=== PATIENT | male | born 1960 | race Caucasian/White ===

== ENCOUNTER → 2022-07-27 | Outpatient (CLI) | payer OTHER | END | disposition home or self-care (01) | LOC: LABPAT 15:11 | PROVIDERS: ATTEND Orthopaedic Surgery | DX: Z01.812 Encounter for preprocedural laboratory examination (principal); M16.12 Unilateral primary osteoarthritis, left hip; Z22.322 Carrier or suspected carrier of Methicillin resistant Staphylococcus aureus | CPT/HCPCS: 87070 ==

== ENCOUNTER → 2022-07-28 | Outpatient (CLI) | payer OTHER | END | disposition home or self-care (01) | LOC: LABPAT 11:47 | PROVIDERS: ATTEND Orthopaedic Surgery | DX: Z53.9 Procedure and treatment not carried out, unspecified reason (principal) ==

== ENCOUNTER 2022-07-31 08:00 | Observation (INO) | payer OTHER ==
--- NOTE | 2022-07-29 11:40 | P.HPOR ---
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 He notes groin and thigh pain worse with weightbearing activities. He is having a difficult time doing daily activities. He is been limping. He tried medications without much relief. He notes it has progressed. Review of Systems Negative except as in HPI Past Medical History Past Medical History: GERD/Reflux, Osteoarthritis (OA), Pneumonia, Prostate Disorder Additional Past Medical History / Comment(s): RAYNAUDS, no recent pneumonia History of Any Multi-Drug Resistant Organisms: None Reported Past Surgical History: No Surgical Hx Reported Additional Past Surgical History / Comment(s): colonoscopy Past Anesthesia/Blood Transfusion Reactions: No Reported Reaction Additional Past Anesthesia/Blood Transfusion Reaction / Comment(s): HAS NEVER HAD SURGERY EVEN IV SEDATION. Smoking Status: Never smoker Past Alcohol Use History: Daily Medications and Allergies Home Medications Medication Instructions Recorded Confirmed Type ALPRAZolam [Xanax] 0.5 mg PO BID PRN 07/27/22 07/27/22 History Sertraline [Zoloft] 100 mg PO DAILY 07/27/22 07/27/22 History Tamsulosin [Flomax] 0.4 mg PO DAILY 07/27/22 07/27/22 History tadalafiL [Cialis] 20 mg PO DIRECTED PRN 07/27/22 07/27/22 History Allergies Allergy/AdvReac Type Severity Reaction Status Date / Time meclizine HCl [From Antivert] Allergy Rash/Hives Verified 07/27/22 13:16 Physical Examination - Hip left Gait: antalgic Tenderness with palpation: anterior Pain with motion: internal rotation and hip flexion ROM: flexion: 90 degrees ROM: internal rotation: 0 degrees (Pain) ROM: external rotation: 60 degrees Crepitus with motion: Yes Strength: extension: 5/5 Strength: flexion: 5/5 Strength: abduction: 5/5 Tests: impingement tests: positive Results The patient is a well-developed well-nourished male approximately 5 foot 9, 160 pounds of mesomorphic habitus. HEENT exam is nonfocal, neck is supple. He has limited painful range of motion of the left hip. Clinically he has 1 cm shortening of the left lower extremity compared to the right. His distal n eurovascular status appears intact left lower extremity. - Diagnostic results Hip x-ray: image reviewed (2 views of the left hip obtained in the office show severe osteoarthrosis with joint space narrowing and subchondral sclerosis.) Assessment and Plan Assessment: Left hip severe osteoarthrosis Plan: I talked to the patient regarding his condition along with treatment options. At this point he's quite limited because of pain related to his osteoarthrosis despite conservative measures. After thorough discussion he opted to proceed with surgery. We'll plan to proceed with left total hip arthroplasty utilizing an anterior approach. Risks and benefits were discussed at length in layman's terms. We will institute DVT prophylaxis postoperatively. He underwent preoperative medical clearance.
[~2022-07-31 08:00] MED LIST: ACETAMINOPHEN TAB 500 MG TAB PO PRN; DEXAMETHASONE SOD PHOSPHATE 4 MG/ML 1 ML VIAL IV ONE; LIDOCAINE 1% (10MG/ML) FOR IV START INTRADERMA PRN; MELOXICAM 7.5 MG TAB PO PRN; MIDAZOLAM 2 MG/2 ML VIAL IV PRN; ONDANSETRON 4 MG/2 ML VIAL IVP ONE; TRANEXAMIC ACID IN NACL,ISO-OS 1,000 MG in SALINE 1 100ML.BAG IVPB PRN
[2022-07-31] MEDS ORDERED: LACTATED RINGERS 1,000 ML IV ONE ×2 (08:45→10:39)
[2022-07-31] MEDS ORDERED: MIDAZOLAM 2 MG/2 ML VIAL IVP ONE (09:11)
[2022-07-31] MEDS ORDERED: GLYCOPYRROLATE 0.2 MG/ML 2 ML VIAL ONE (09:35)
[2022-07-31] MEDS ORDERED: ROPIVACAINE 5 MG/ML 30 ML VIAL ONE (09:35)
[2022-07-31] MEDS ORDERED: MIDAZOLAM 2 MG/2 ML VIAL ONE (09:35)
[2022-07-31] MEDS ORDERED: fentaNYL (PF) 50 MCG/ML 2 ML AMP ONE (09:35)
[2022-07-31] MEDS ORDERED: TRANEXAMIC ACID IN NACL,ISO-OS 1,000 MG/100 ML BAG ONE (09:35)
[2022-07-31] MEDS ORDERED: DEXAMETHASONE SOD PHOSPHATE 4 MG/ML 1 ML VIAL ONE (09:35)
[2022-07-31] MEDS ORDERED: PROPOFOL 10 MG/ML 20 ML VIAL IV ONE (09:35)
[2022-07-31] MEDS ORDERED: ceFAZolin 1,000 MG in SODIUM CHLORIDE 0.9% 1,000 ML IRRIGATION ONE (10:19)
[2022-07-31] MEDS ORDERED: MAGNESIUM HYDROXIDE 2,400 MG/10 ML CUP PO PRN (11:40)
[2022-07-31] MEDS ORDERED: NALOXONE 0.4 MG/ML 1 ML VIAL IV PRN (11:40)
[2022-07-31] MEDS ORDERED: HYDROcodone/APAP 5-325MG 1 EACH TAB PO PRN (11:40)
[2022-07-31] MEDS ORDERED: HYDROmorphone 1 MG/ML 1 ML SYRINGE IVP PRN (11:40)
[2022-07-31] MEDS ORDERED: HYDROmorphone 0.5 MG/0.5 ML SYRINGE IVP PRN (11:40)
--- NOTE | 2022-07-31 12:05 | FL ---
Intraoperative/procedural fluoroscopic services were provided. Total fluoroscopy time is 26 seconds w ith a total of 4 submitted images to PACS. Please see the operative/procedural note for further detai ls. DAP: 0.8499 Gycm2
--- NOTE | 2022-07-31 12:07 | P.OP ---
Date of Procedure: 07/31/22 Preoperative Diagnosis: Left hip severe osteoarthrosis Postoperative Diagnosis: Same Procedure(s) Performed: Left total hip arthroplastypress-fitanterior approach Implants: Depuy Corail size 14 collared 125 high offset press-fit femoral stem, 36+1.5 cobalt chrome femoral head, 60 mm Mora acetabular shell with neutral polyethylene liner. I utilized a 6.5 x 30 mm cancellous screw. Anesthesia: regional, spinal Surgeon: Rigoberto Irwin Coordinator [employer]: Arvind Dukes Estimated Blood Loss (ml): 200 Pathology: none sent Condition: stable Disposition: PACU Indications for Procedure: The patient is a 61-year-old male who presents with progressive left hip pain secondary to osteoarthrosis despite conservative measures. A discussion of the risks and benefits of operative intervention versus continued conservative measures was made with patient. He opted to proceed with surgery. Operative risks to include infection, neurovascular injury, development of blood clots, leg length discrepancy, fracture, possible component loosening/failure and need for subsequent procedures was discussed. Informed consent was obtained. Operative Findings: As below Description of Procedure: The patient was brought to the operating room, and after induction of spinal anesthesia was placed supine on the Daija table. Positioning was checked with fluoroscopy. The left hip was then prepped and draped in a normal fashion. A 12 cm incision was then made starting 2 fingerbreadths distal and 3 finger breaths posterior to the ASIS in line with the proximal femur. The skin was incised sharply. Subcutaneous tissues were divided sharply. Electrocautery was used for hemostasis. The fascia was split in line with skin incision. The interval between the sartorius and tensor fascia dora was then bluntly developed. The posterior fascia was opened with electrocautery. The lateral circumflex vessels were identified and cauterized prior to sectioning. A retractor was placed along the superior femoral neck as well as the anterior acetabular rim. A wide capsulotomy was performed. The neck cut was then made at a 45 angle to the shaft approximately 1 1/2 cm above the level of the lesser trochanter. The head was extracted. Attention was then paid towards preparing the acetabular. Anterior and posterior retractors were placed. The remaining capsular labral tissue sharply debrided clearly defining the acetabular margins. I began reaming with a 51 mm reamer taking care to initially medialize then reaming at 45 of abduction and 20 of anteversion. Sequential reaming is performed up to 59 mm. A trial stay mm acetabular shell was inserted in the same orientation and was fully seated. There was good rim fit and stability. Positioning was checked with fluoroscopy. The final [] mm acetabular shell was inserted again at 45 of abduction and 20 of anteversion. This was fully seated. There was good rim fit and stability. I did place a 6.5 mm x 30 mm cancellus screw posterior superior with good purchase. Again fluoroscopy was used to check the adequacy of placement. A neutral polyethylene liner was gently impacted. Care was taken to avoid any s oft tissue interposition. Pulsatile lavage was utilized. Attention was then paid towards preparing the proximal femur. The central region was cleared of soft tissue. A canal finder was used to find the femoral canal. Sequential broaching was performed up to size 14 taking care to lateralize proximally. A calcar mill was used to fashion the medial calcar. There was good rotational stability. A 125 high offset neck along with a 36 mm +1.5 head was placed. The hip was gently reduced. Fluoroscopy was used to check the adequacy of positioning along with leg lengths. I felt both were good. The hip was gently dislocated. The trial components were removed. The final size 14 collared 125 high offset press-fit femoral stem was inserted parallel to the posterior cortex. This was fully seated and there was good rotational stability. A 36 mm and 5 head was placed. This was gently impacted. The hip was then gently reduced. Final fluoroscopic view showed adequate placement implant along with nondenominational of leg length. Stability was checked with 80 of external rotation and 60 of extension of the right hip. The wound was irrigated with sterile lavage. The fascia was closed with running 0 Vicryl suture. There was minimal drainage therefore a deep drain was not placed. The second dose of IV TXA was given. The subcutaneous tissues were reapproximated interrupted 2-0 Vicryl sutures. The skin was reapproximated with 3-0 subcuticular strata fix suture. Skin tape and adhesive was applied. A sterile dressing was applied. The patient was then awoken from sedation and transferred to recovery room in good condition. Blood loss was estimated at 200 mL. No complications were incurred. Sponge and needle counts were correct at the end of the case. Arvind KAT assisted during the major components is case to include exposure, bone resection, implantation, and closure.
--- NOTE | 2022-07-31 13:30 | P.ANPRN ---
Procedure Note - Anesthesia - Nerve Block Performed Left Maurice Single Time Out Performed: Yes Date of Procedure: 07/31/22 Procedure Start Time: 09:10 Procedure Stop Time: 09:15 Location of Patient: PreOp Indication: Acute Post-Operative Pain, Requested by Surgeon Sedation Type: Sedate with meaningful contact maintained Preparation: Sterile Prep Position: Supine Needle Types: Pajunk Needle Gauge: 21 Ultrasound used to visualize needle placement: Yes Ultrasound used to observe medication spread: Yes Blood Aspirated: No Pain Paresthesia on Injection Noted: No Resistance on Injection: Normal Image Stored and Saved: Yes Events: Uneventful and Well Tolerated (Ropivacaine 0.5% 20 mL dexamethasone 4 mg)
[2022-07-31] MEDS: HYDROmorphone 0.5 MG/0.5 ML SYRINGE IVP PRN ×3 (14:10→14:38)
[2022-07-31] MEDS: LACTATED RINGERS 1,000 ML IV SCH (14:47)
[2022-07-31] MEDS: HYDROcodone/APAP 7.5-325MG 1 EACH TAB PO PRN ×2 (15:41→20:39)
[2022-07-31] MEDS ORDERED: TADALAFIL 20 MG PO PRN (17:05)
[2022-07-31] MEDS ORDERED: ALPRAZolam 0.5 MG TAB PO PRN (17:05)
[2022-07-31] MEDS: TAMSULOSIN 0.4 MG CAP.ER.24H PO SCH (17:12)
[2022-07-31] MEDS ORDERED: SENNOSIDES-DOCUSATE SODIUM 1 EACH TAB PO SCH (21:00)
[2022-08-01] MEDS: LACTATED RINGERS 1,000 ML IV SCH (03:03)
[2022-08-01] MEDS: HYDROcodone/APAP 7.5-325MG 1 EACH TAB PO PRN ×2 (06:11→12:12)
[2022-08-01 07:42] VITALS: RESP 16
[2022-08-01] MEDS: TAMSULOSIN 0.4 MG CAP.ER.24H PO SCH (08:51)
[2022-08-01] MEDS ORDERED: SERTRALINE 100 MG TAB PO SCH (09:00)
[2022-08-01] MEDS ORDERED: RIVAROXABAN 10 MG TAB PO SCH (09:00)
[2022-08-01] MEDS: ONDANSETRON 4 MG/2 ML VIAL IVP PRN ×2 (09:12→15:21)
--- NOTE | 2022-08-01 11:34 | P.DS ---
Providers Date of admission: 07/31/2022 Expected date of discharge: 08/01/22 Attending physician: Rigoberto Irwin Consults: 07/31/22 11:40 Consult Physician Routine Consulting Provider: Maximiliano Tariq Consult Reason/Comments: medical management s/p left total hip arthroplasty (anterior) Do you want consulting provider notified?: Yes Primary care physician: Maximiliano Tariq Hospital Course: Date of admission: 07/31/2022 Date of discharge: 08/01/2022 Admission diagnosis: Left hip osteoarthritis Discharge diagnosis: Same Attending physician: Dr. Irwin Surgical procedures: Left total hip arthroplasty Brief history: Patient is a 61-year-old male with a history of progressive primary left hip osteoarthritis. At this point patient has failed conservative treatment measures and has opted to proceed with a elective left total hip arthroplasty. Hospital course: Details of patient's surgery can be found in operative report. Patient tolerated the procedure well and was subsequently transported to orthopedic floor. Patient's orthopeidc and medical care was provided daily. Patient had daily laboratory tests performed for evaluation of overall blood counts. Patient had daily physical therapy to include strengthening range of motion as well as education with walker ambulation. Patient was treated with Xarelto for their postoperative DVT prophylaxis during their inpatient stay. Patient was noted to have a relatively uneventful postoperative course. Patient reported satisfactory pain control with oral pain medications by postoperative day 1. Patient showed satisfactory progress with physical therapy. Patient moved steadily through the program and had no difficulty meeting the goals by postoperative day 1. Given patient's otherwise satisfactory course and having met physical therapy goals, plan is to discharge patient home with health services on postoperative day 1. Discharge condition/disposition: Patient will be discharged home with health services in stable condition. Discharge medications: Instructions are given on resumption of patient's normal daily medications per primary care recommendation, in addition patient will be prescribed [place]; senna; Zofran; eliquis. Discharge instructions: 1. Wound care and infection precautions, keep incision dry and covered while showering, no lotions, creams, moisturizers. No soaking, tubs, pools, hottubs. Do not scrub over the incision. 2. Weight-bear as tolerated with walker / cane until follow-up. 3. Ice and elevate when necessary. Do not exceed 20 minutes per hour with ice pack. 4. Utilize compression sleeve until seen at first follow up appointment. 5. Visiting nursing care. 6. Home physical therapy. 7. Pain meds and anticoagulants per prescription. 8. Pain medication has potential to cause constipation. Increase oral fluid and fiber intake. Contact primary care provider if you have not had a bowel movement within 48 hours after discharge 9. No anti-inflammatory medication until discussed at first post operative visit, this including Motrin, Aleve, Mobic, Diclofenac. 10. Follow up in office at 2 weeks postop with Dylon Patel PA-C / Arvind Dukes PA-C 11. Follow up with your primary care doctor 7-10 days after discharge. 12. Contact [facility] with any questions, . Keep incision clean, dry, intact. While showering, cover fusion tape was Saran wrap. Keep tape on until follow-up appointment in office in 2 weeks. Assessment: Left hip osteoarthritis Procedures: Left total hip arthroplasty Patient Condition at Discharge: Good Plan - Discharge Summary Discharge Rx Participant: Yes New Discharge Prescriptions: New HYDROcodone/APAP 7.5-325MG [[place] 7.5] 1 - 2 each PO Q6HR PRN #36 tab PRN Reason: Pain Sennosides/Docusate Sodium [Senna Plus 8.6-50 mg Softgel] 1 each PO DAILY #20 capsule Ondansetron [Zofran] 4 mg PO Q8HR PRN #12 tab PRN Reason: Nausea Apixaban [Eliquis] 2.5 mg PO BID #60 tab No Action Sertraline [Zoloft] 100 mg PO DAILY tadalafiL [Cialis] 20 mg PO DIRECTED PRN PRN Reason: erectile dysfunction Tamsulosin [Flomax] 0.4 mg PO DAILY ALPRAZolam [Xanax] 0.5 mg PO BID PRN PRN Reason: Anxiety Discharge Medication List ALPRAZolam [Xanax] 0.5 mg PO BID PRN 07/27/22 [History] Sertraline [Zoloft] 100 mg PO DAILY 07/27/22 [History] Tamsulosin [Flomax] 0.4 mg PO DAILY 07/27/22 [History] tadalafiL [Cialis] 20 mg PO DIRECTED PRN 07/27/22 [History] Apixaban [Eliquis] 2.5 mg PO BID #60 tab 08/01/22 [Rx] HYDROcodone/APAP 7.5-325MG [[place] 7.5] 1 - 2 each PO Q6HR PRN #36 tab 08/01/22 [Rx] Ondansetron [Zofran] 4 mg PO Q8HR PRN #12 tab 08/01/22 [Rx] Sennosides/Docusate Sodium [Senna Plus 8.6-50 mg Softgel] 1 each PO DAILY #20 capsule 08/01/22 [Rx] Follow up Appointment(s)/Referral(s): Arvind Dukes, SARABJIT [PHYSICIAN COMPUTER GRAPHIC ARTIST] - 08/17/22 2:50 pm [facility] [NON-STAFF] - As Needed Patient Instructions/Handouts: Anterior Hip Replacement (DC) Activity/Diet/Wound Care/Special Instructions: Orthopedic Discharge Instructions: 1. Wound care and infection precautions, keep incision dry and covered while showering, no lotions, creams, moisturizers. No soaking, pools, hot tubs. Do not scrub over incision. 2. Weight-bear as tolerated with walker / cane until follow-up. 3. Ice and elevate when necessary. Do not exceed 20 minutes per hour with ice pack. 4. Utilize compression sleeve until seen at first follow up appointment. 5. Pain meds and anticoagulants per prescription. 6. Pain medication has potential to cause constipation. Increase oral fluid and fiber intake. Contact primary care provider if you have not had a bowel movement within 48 hours after discharge. 7. No anti-inflammatory medication until discussed at first post operative visit, this including Motrin, Aleve, Mobic, Diclofenac. 8. Follow up in office at 2 weeks postop with Dylon Patel PA-C / Arvind Dukes PA-C 9. Follow up with your primary care doctor 7-10 days after discharge. 10. Contact [facility] with any questions, . Keep incision dry, intact. While showering, cover fusion tape with Saran wrap. Follow up in office in 2 weeks. Discharge Disposition: HOME WITH HOME HEALTH SERVICES
--- NOTE | 2022-08-01 12:45 | P.PN ---
Subjective Progress Note Date: 08/01/22 Principal diagnosis: Left hip osteoarthritis Patient was seen at bedside this morning sitting up in chair with legs elevated. Patient says he just been working with physical therapy and walk down the del real and up-and-down steps. Patient says he has been nausea since surgery yesterday. Patient says that the Zofran did help with the nausea. Patient says he does have a walker for home. Patient says he had urinated several times since surgery yesterday. Patient says he is having some hip pain at this time however, it is controlled with medication. Patient says he is sleeping poorly going home later today. Patient denies any significant chest pain, fever, shortness breath, nausea, vomiting, change in vision, loss of bowel/bladder control. Objective - Vital Signs Vital signs: Vital Signs Temp 98.4 F 08/01/22 07:21 Pulse 63 08/01/22 07:21 Resp 16 08/01/22 07:21 BP 132/70 08/01/22 07:21 Pulse Ox 99 08/01/22 07:21 FiO2 Intake & Output 07/31/22 08/01/22 08/01/22 18:59 06:59 18:59 Intake Total 1851 Output Total 525 600 Balance 1326 -600 Weight 70.9 kg Intake: IV 1851 Output: Urine 325 600 Estimated Blood Loss 200 Other: Voiding Method Urinal # Voids 0 2 - Exam Left hip: Incision is clean, dry, and intact. The exofin fusion tape is in good condition. There is minimal soft tissue swelling and ecchymosis surrounding the medial and lateral aspects of the incision. Calf is soft, no tenderness with palpation. Plantar flexion, dorsiflexion, EHL, FHL are intact. Sensory exam to light touch throughout the extremity is intact, dorsal pedis pulses 2+. Assessment and Plan Assessment: 1. Left hip osteoarthritis - Postoperative day 1 status post left total hip arthroplasty Plan: 1. Left hip osteoarthritis - left total hip arthroplasty performed yesterday, 07/31/2022. Patient stable at bedside this morning. Patient does have a walker for home. Discharge home today with health services. 2. Appreciate medical management 3. Pain management - [place] 4. DVT prophylaxis - Xarelto in hospital. Going home with eliquis 5. GI prophylaxis - senna 6. PT/OT - weightbearing as tolerated with walker as needed 7. Encourage incentive spirometer use 8. Discharge planning - home today with health services Time with Patient: Less than 30
[2022-08-01 14:18] LABS: Basophils # (A) 0.03 X 10*3/uL (0.00-0.10); Basophils % (A) 0.3 %; Eosinophils # (A) 0.01 X 10*3/uL (0.04-0.35); Eosinophils % (A) 0.1 %; HCT 41.2 % (39.6-50.0); Immature Grans, Automated 0.3 %; Lymphocytes # (A) 1.34 X 10*3/uL (0.90-5.00); Lymphocytes % (A) 13.1 %; MCH 33.1 pg (27.0-32.0); MCV 97.4 fL (80.0-97.0); Mean Platelet Volume 9.9 fL (9.5-12.2); Monocytes # (A) 0.82 X 10*3/uL (0.20-1.00); NRBC Per 100 WBC 0 /100 WBCS (0.0-0.0); Neutrophils # (A) 8.01 X 10*3/uL (1.80-7.70); Neutrophils % (A) 78.2 %; Platelet Count 203 X 10*3/uL (140-440); RBC 4.23 X 10*6/uL (4.40-5.60); RDW 12.9 % (11.5-14.5); WBC 10.24 X 10*3/uL (4.50-10.00)
[2022-08-01 15:15] VITALS: BP 118/64; PULSE 91; TEMP 98.2
--- NOTE | 2022-08-01 23:07 | P.CONS ---
History of Present Illness - Reason for Consult Consult date: 08/01/22 - History of Present Illness Patient is a pleasant 61-year-old white male who was admitted to the hospital status post left hip anterior arthroplasty. He is doing very well his pain is controlled is afebrile he has no cough or congestion no shortness of breath patient has not ambulated yet today his pain was an 8 out of 10 last night into 6 out of 10 today . Review of Systems GENERAL: Patient denies fever. Denies chills. EYES: Denies blurred vision. Denies vision changes. Denies eye pain. EARS, NOSE, MOUTH, & THROAT: Denies headache. Denies sore throat. Denies ear pain. RESPIRATORY: Denies cough. Denies shortness of breath. Denies sputum production. Denies hemoptysis. CARDIOVASCULAR: Denies chest pain or pressure. Denies palpitations. Denies arrhythmias. GASTROINTESTINAL: Denies abdominal pain. Denies diarrhea. Denies constipation. Denies nausea. Denies vomiting. Denies heartburn. Denies blood in the stool. GENITOURINARY: Denies urinary frequency. Denies burning. Denies dysuria. Denies cloudy urine. Denies blood in the urine. MUSCULOSKELETAL: Denies myalgias. Denies joint swelling. Denies decreased range of motion beyond patients baseline. INTEGUMENTARY: Denies pruitis. Denies rash. PSYCHIATRIC: Denies suicidal or homicial ideations. ENDOCRINE: Denies weight change. Denies polydipsia. Denies polyuria. HEMATOLOGIC: Denies bleeding disorders. Past Medical History Past Medical History: GERD/Reflux, Osteoarthritis (OA), Pneumonia, Prostate Disorder Additional Past Medical History / Comment(s): RAYNAUDS, no recent pneumonia History of Any Multi-Drug Resistant Organisms: None Reported Past Surgical History: No Surgical Hx Reported Additional Past Surgical History / Comment(s): colonoscopy Past Anesthesia/Blood Transfusion Reactions: No Reported Reaction Additional Past Anesthesia/Blood Transfusion Reaction / Comm: HAS NEVER HAD SURGERY EVEN IV SEDATION. Smoking Status: Never smoker Medications and Allergies Home Medications Medication Instructions Recorded Confirmed Type ALPRAZolam [Xanax] 0.5 mg PO BID PRN 07/27/22 07/31/22 History Sertraline [Zoloft] 100 mg PO DAILY 07/27/22 07/31/22 History Tamsulosin [Flomax] 0.4 mg PO DAILY 07/27/22 07/31/22 History tadalafiL [Cialis] 20 mg PO DIRECTED PRN 07/27/22 07/31/22 History Apixaban [Eliquis] 2.5 mg PO BID #60 tab 08/01/22 Rx HYDROcodone/APAP 7.5-325MG [[place] 1 - 2 each PO Q6HR PRN #36 tab 08/01/22 Rx 7.5] Ondansetron [Zofran] 4 mg PO Q8HR PRN #12 tab 08/01/22 Rx Sennosides/Docusate Sodium [Senna 1 each PO DAILY #20 capsule 08/01/22 Rx Plus 8.6-50 mg Softgel] Allergies Allergy/AdvReac Type Severity Reaction Status Date / Time meclizine HCl [From Antivert] Allergy Rash/Hives Verified 07/31/22 08:23 Physical Exam Osteopathic Statement: *. No significant issues noted on an osteopathic structural exam other than those noted in the History and Physical/Consult. Vitals: Vital Signs Temp Pulse Resp BP Pulse Ox 08/01/22 14:40 98.2 F 91 16 118/64 95 08/01/22 07:21 98.4 F 63 16 132/70 99 08/01/22 01:20 98.1 F 73 19 125/65 96 Intake and Output 08/01/22 08/01/22 08/01/22 06:59 14:59 22:59 Output Total 600 Balance -600 Output: Urine 600 Other: # Voids 2 GENERAL: This is a -61year-old in no apparent distress at the time of examination. Pleasant and cooperative. HEENT: Head is atraumatic, normocephalic. Pupils are equal, round, and reactive to light. Sclerae anicteric. Conjunctivae are clear. Mucus membranes of the mouth are moist. Neck is supple. RESPIRATORY: Clear to auscultation. No wheezes, rales, or rhonchi. No use of accessory muscles. CARDIOVASCULAR: Regular rate and rhythm. S1 and S2 noted. No systolic or diastolic murmur auscultated. No JVD noted. No S3 or S4 noted. GASTROINTESTINAL: No distention noted. Abdomen soft and round. Normal active bowel sounds auscultated x 4 quadrants. No pain or tenderness noted upon palpation. INTEGUMENTARY: No cyanosis. No jaundice. No rashes noted. No cellulitis noted. EXTREMITIES: 2+ peripheral pulses. No evidence of peripheral edema. No calf tenderness noted. NEUROLOGIC: Cranial nerves II-XII intact. PSYCHIATRIC: Awake, alert, and oriented X 3. Appropriate affect. Intact judgement and insight. Results CBC & Chem 7: 08/01/22 05:39 Labs: Abnormal Lab Results - Last 24 Hours (Table) 08/01/22 Range/Units 05:39 WBC 10.24 H (4.50-10.00) X 10*3/uL RBC 4.23 L (4.40-5.60) X 10*6/uL MCV 97.4 H (80.0-97.0) fL MCH 33.1 H (27.0-32.0) pg Neutrophils # 8.01 H (1.80-7.70) X 10*3/uL Eosinophils # 0.01 L (0.04-0.35) X 10*3/uL Assessment and Plan (1) S/P total left hip arthroplasty Status: Acute Code(s): Z96.642 - PRESENCE OF LEFT ARTIFICIAL HIP JOINT SNOMED Code(s): 517239646132 (2) Osteoarthritis of left hip Status: Acute Code(s): M16.12 - UNILATERAL PRIMARY OSTEOARTHRITIS, LEFT HIP SNOMED Code(s): 422170751004100 Plan: Plan is to continue DVT prophylaxis pain control early ambulation and physical therapy discharged home when cleared by orthopedics thank you for allowing me to participate in this patient's care
--- NOTE | 2022-08-06 13:35 | XR ---
EXAMINATION TYPE: XR Hip Limited LT DATE OF EXAM: 07/31/2022 12:39 PM INDICATION: Patient age:Male; 61 years old; Reason for study: Status post hip surgery, assess surgical alignment; PHH. COMPARISON: Left hip radiograph 07/31/2022 TECHNIQUE: The left hip was examined in the frontal projection. FINDINGS: Postsurgical changes from left total hip arthroplasty. Hardware appears intact with appropr iate alignment. Evaluation is limited due to single projection. There is associated soft tissue gas a nd edema. No acute fracture or dislocation. Vasectomy clips are identified. IMPRESSION: Postsurgical changes from left total hip arthroplasty. Hardware appears intact with appropriate align ment.
== END 2022-08-01 16:02 | disposition home health service (06) ==
LOC: OR 08:00 → 4SSUR 12:00 → OR 08-01 09:07 → 4SSUR 08-01 09:07
PROVIDERS: ADMIT Orthopaedic Surgery; ATTEND Orthopaedic Surgery
DX: M16.12 Unilateral primary osteoarthritis, left hip (principal); K21.9 Gastro-esophageal reflux disease without esophagitis; N40.0 Benign prostatic hyperplasia without lower urinary tract symptoms; I73.00 Raynaud's syndrome without gangrene; F41.9 Anxiety disorder, unspecified; F32.A Depression, unspecified; Z79.899 Other long term (current) drug therapy; Z88.8 Allergy status to other drugs, medicaments and biological substances; Z87.01 Personal history of pneumonia (recurrent); Z98.890 Other specified postprocedural states
CPT/HCPCS: 97162; 97535; 97166; 64447; 86900; 86901; 85025; 86850; 73501; 73502; 27130; G0378; C1776; J2250; J1100; J0690 ×3; J2405 ×2; J3010; J1170 ×2; J2795; J2704